=== PATIENT | female | born 1960 | race Caucasian/White ===

== ENCOUNTER → 2016-09-11 | Outpatient (CLI) | payer SELFPAY ==
[~2016-09-11] MED LIST: ALBUTEROL0.09 MG/A2 INH; ALLEGRA180 MG PO; ATIVAN0.5 MG PO; CLARITIN-D 10 M1 T24 PO; GABAPENTIN100 M2 PO; K-DUR 20MEQ20 MEQ PO; KEFLEX500 MG PO; LASIX40 MG PO; LISINOPRIL10 M1 PO; METFORMIN500 MG PO; NORCO 325 MG-51 TAB PO; PREDNICOT20 MG PO; PROAIR HFA0.09 MG/AC IH; Synthroid,Levo50 MCG PO; TRAD5TAB1 PO; ZITHROMAX Z PA250 MG PO; ZITHROMAX250 MG PO; ZYRTEC10 MG PO
[2016-09-11 11:35] LABS: HEMATOCRIT 42.4 % (37.0-47.0); HEMOGLOBIN 13.9 g/dl (12.0-16.0); MEAN CELL VOLUME 83.1 fl (81.0-99.0); MEAN CORPUSCULAR HGB 27.3 pg (27.0-31.0); MEAN CORPUSCULAR HGB CONC 32.8 g/dl (33.0-37.0); MEAN PLATELET VOLUME 9.6 fl (9.6-12.3); RED BLOOD COUNT 5.1 10*6/uL (4.10-5.10); RED CELL DISTRI WIDTH 13.1 % (0-14.5); WHITE BLOOD COUNT 8.1 10*3/uL (4.8-10.8)
[2016-09-11 11:54] LABS: HEMOGLOBIN A1c 5.5 % (4.8-5.6)
[2016-09-11 12:06] LABS: ALBUMIN 3.7 gm/dl (3.1-4.5); BUN 13 mg/dl (7-24); CARBON DIOXIDE 30 mmol/L (21-32); CHLORIDE 104 mmol/L (98-107); CHOLESTEROL 193 mg/dL (<200); EST GLOM FILT AFRICAN AMERICAN > 60 ml/min; GLUCOSE 112 mg/dL (65-99); POTASSIUM 3.9 mmol/L (3.5-5.1); SGOT/AST 17 IU/L (3-35); SODIUM 141 mmol/L (136-145); TRIGLYCERIDES 233 mg/dl (<150); VLDL CHOLESTEROL 47 mg/dL (6-40)
[2016-09-11 12:14] LABS: ALKALINE PHOSPHATASE 74 U/L (45-117); BILIRUBIN, TOTAL 0.7 mg/dl (0.2-1.0); FREE T4 0.77 ng/dl (0.76-1.46); HDL CHOLESTEROL 53 mg/dl (40-60); LDL CHOLESTEROL 93 mg/dL (9-159); SGPT/ALT 30 U/L (12-78); TOTAL PROTEIN 7.8 gm/dL (6.4-8.2)
== END | disposition home or self-care (01) ==
LOC: LAB 11:22
PROVIDERS: Family Medicine
DX: E78.00 Pure hypercholesterolemia, unspecified (principal); I10 Essential (primary) hypertension; E11.9 Type 2 diabetes mellitus without complications; E55.9 Vitamin D deficiency, unspecified; E03.9 Hypothyroidism, unspecified